=== PATIENT | female | born 1980 | race Caucasian/White ===

== ENCOUNTER 2021-04-06 15:28 | Emergency (ER) | payer OTHER ==
[2021-04-06 16:50] LABS: BASOPHIL 0.5 % (0-2); EOSINOPHIL 3.6 % (0-5); HGB 12.1 g/dl (12.5-16.0); LYMPHOCYTE 25.9 % (15-48); MCH 27.6 pg (25.0-31.0); MCHC 30.3 g/dL (32.0-36.0); MCV 91.1 fL (78.0-100.0); MONOCYTE 6.6 % (0-12); MPV 10.9 fL (6.0-9.5); NRBC 0; PLT 262 K/uL (150-400); RBC 4.39 M/uL (4.20-5.40); RDW 15.2 % (11.5-14.0); WBC 8.2 K/uL (4.0-10.5)
[2021-04-06 16:57] LABS: INR 1.05 (0.9-1.2); PROTHROMBIN TIME 13.1 SECONDS (11.8-13.4)
[2021-04-06 17:10] LABS: ALBUMIN 3.1 g/dL (3.4-5.0); BILIRUBIN - TOTAL 0.2 mg/dL (0.2-1.0); BUN/CREAT RATIO (CALC) 13.5 RATIO; CREATININE 0.89 mg/dL (0.51-0.95); GLOBULIN (CALCULATION) 4.2 g/dL; TOTAL PROTEIN 7.3 g/dL (6.4-8.2)
[2021-04-06] MEDS ORDERED: ATARAX25 MG PO (18:08)
== END 2021-04-06 18:22 | disposition home or self-care (01) ==
LOC: FER 15:28
PROVIDERS: Nurse Practitioner Family
DX: R07.89 Other chest pain (principal); I10 Essential (primary) hypertension; J45.909 Unspecified asthma, uncomplicated
CPT/HCPCS: 36415; 71045; 80053; 84484; 85025; 85610; 93005

== ENCOUNTER 2021-05-29 01:57 | Emergency (ER) | payer OTHER ==
[~2021-05-29 01:57] MED LIST: ATARAX25 MG PO
[2021-05-29 02:48] LABS: BILIRUBIN NEGATIVE (NEGATIVE); BLOOD NEGATIVE Ery/uL (NEGATIVE); CLARITY CLEAR (CLEAR); COLOR YELLOW (YELLOW); GLUCOSE (U) NORMAL (NORMAL); LEUKOCYTES NEGATIVE Leu/uL (NEGATIVE); NITRITE NEGATIVE (NEGATIVE); PROTEIN TRACE (LOW) mg/dL (NEGATIVE); SPECIFIC GRAVITY 1.025 (1.001-1.030); UROBILINOGEN 0.2 mg/dL (0.2-1.0); pH 6.5 (5.0-9.0)
[2021-05-29 03:50] LABS: BASOPHIL 0.3 % (0-2); EOSINOPHIL 1.8 % (0-5); HCT 33.4 % (37.0-47.0); HGB 10.5 g/dl (12.5-16.0); LYMPHOCYTE 14.6 % (15-48); MCH 27.6 pg (25.0-31.0); MCHC 31.4 g/dL (32.0-36.0); MCV 87.7 fL (78.0-100.0); MONOCYTE 8.5 % (0-12); MPV 11.6 fL (6.0-9.5); NEUTROPHIL 74.3 % (41-80); NRBC 0; PLT 165 K/uL (150-400); RBC 3.81 M/uL (4.20-5.40); RDW 15.2 % (11.5-14.0); WBC 10.5 K/uL (4.0-10.5)
[2021-05-29 04:14] LABS: ALBUMIN 3.1 g/dL (3.4-5.0); BILIRUBIN - TOTAL 0.5 mg/dL (0.2-1.0); BUN/CREAT RATIO (CALC) 15.3 RATIO; CREATININE 0.85 mg/dL (0.51-0.95); POTASSIUM 3.6 mmol/L (3.5-5.1); TOTAL PROTEIN 7.1 g/dL (6.4-8.2)
[2021-05-29] MEDS ORDERED: AUGMENTIN 875-1 EACH PO (04:28)
[2021-05-30 22:06] LABS: CHLAMYDIA TRACHOMATIS, NAA Negative (Negative); NEISSERIA GONORRHOEAE, NAA Negative (Negative)
== END 2021-05-29 04:40 | disposition home or self-care (01) ==
LOC: FER 01:57
PROVIDERS: Emergency Medicine
DX: K57.32 Diverticulitis of large intestine without perforation or abscess without bleeding (principal); F17.200 Nicotine dependence, unspecified, uncomplicated
CPT/HCPCS: 36415; 80053; 81003; 83690; 85025; 87210; 87491; 87591; J1885

== ENCOUNTER 2021-06-09 10:15 | Emergency (ER) | payer OTHER ==
[~2021-06-09 10:15] MED LIST changes: +AUGMENTIN 875-1 EACH PO
[2021-06-09 11:27] LABS: BASOPHIL 0.5 % (0-2); EOSINOPHIL 2.8 % (0-5); HCT 35.7 % (37.0-47.0); HGB 11.1 g/dl (12.5-16.0); LYMPHOCYTE 22.5 % (15-48); MCH 27.1 pg (25.0-31.0); MCHC 31.1 g/dL (32.0-36.0); MCV 87.1 fL (78.0-100.0); MONOCYTE 5.6 % (0-12); MPV 11.4 fL (6.0-9.5); NEUTROPHIL 68.1 % (41-80); NRBC 0; PLT 238 K/uL (150-400); RDW 15.4 % (11.5-14.0); WBC 8.1 K/uL (4.0-10.5)
[2021-06-09 11:39] LABS: INR 1.18 (0.9-1.2); PROTHROMBIN TIME 14.4 SECONDS (11.8-13.4)
[2021-06-09 11:42] LABS: ALBUMIN 3.3 g/dL (3.4-5.0); ALKALINE PHOSHATASE 87 U/L (46-116); ALT 17 U/L (14-59); AST 20 U/L (15-37); BILIRUBIN - TOTAL 0.2 mg/dL (0.2-1.0); BUN 9 mg/dL (7-18); BUN/CREAT RATIO (CALC) 12.9 RATIO; CHLORIDE 105 mmol/L (98-107); CO2 (BICARBONATE) 24 mmol/L (21-32); GLOBULIN (CALCULATION) 4.1 g/dL; GLUCOSE 99 mg/dL (74-106); POTASSIUM 3.6 mmol/L (3.5-5.1); TOTAL PROTEIN 7.4 g/dL (6.4-8.2)
== END 2021-06-09 12:15 | disposition left against medical advice (07) ==
LOC: FER 10:15
PROVIDERS: Emergency Medicine
DX: R07.9 Chest pain, unspecified (principal); Z53.8 Procedure and treatment not carried out for other reasons
CPT/HCPCS: 36415; 71045; 80053; 84484; 85025; 85610; 93005